=== PATIENT | male | born 1985 | race Hispanic/Latino ===

== ENCOUNTER 2018-12-21 11:46 | Emergency (ER) | payer SELFPAY ==
[~2018-12-21] VITALS: Ht 152.4 cm; Wt 50.0 kg
[2018-12-21 12:14] LABS: HEMOGLOBIN 15.1 g/dl (14.0-18.0); IMMATURE GRANULOCYTES 0.4 % (0.0-5.0); MEAN CORPUSCULAR HGB 30.4 pG CALC (26.0-32.0); MEAN CORPUSCULAR HGB CONC 32.7 g/L CALC (32.0-36.0); NEUT# 3.23 thou/uL (1.82-7.42); RED BLOOD COUNT 4.97 mill/uL (4.70-6.10)
[2018-12-21 12:21] LABS: HEMATOCRIT 46.2 % (39.0-50.0)
[2018-12-21 12:32] LABS: ALBUMIN 4.9 g/dL (3.2-5.0); ANION GAP 30 (6-22 (CALC)); BILIRUBIN, TOTAL 0.3 mg/dL (0.0-1.4); BUN 14 mg/dL (9-20); BUN/CREATININE RATIO 11 (12-20 (CALC)); CARBON DIOXIDE 13 mmol/l (22-30); CHLORIDE 105 mmol/l (95-108); CREATININE 1.3 mg/dL (0.7-1.3); GFR > 60 ML/MIN (>=60 (CALC)); GFR FOR AFR.AMER. > 60 ML/MIN (>=60 (CALC)); POTASSIUM 3.8 mmol/l (3.5-5.1); SGOT/AST 22 u/l (17-59); SODIUM 144 mmol/l (137-146)
[2018-12-21 12:53] LABS: ALKALINE PHOSPHATASE 57 u/l (38-126)
[2018-12-21 14:10] LABS: BARBITURATES NEGATIVE (NEGATIVE); COCAINE NEGATIVE (NEGATIVE); METHADONE NEGATIVE (NEGATIVE); OXCYCODONE NEGATIVE (NEGATIVE); TETRAHYDROCANNABIONOL POSITIVE (NEGATIVE); TRICYLIC ANTIDEPRESSANTS NEGATIVE (NEGATIVE)
[2018-12-21 14:13] VITALS: BP 126/56
== END 2018-12-21 14:19 | DRG 313 ==
LOC: ED 11:46
PROVIDERS: Emergency Medicine
DX: R07.89 Other chest pain (principal); R00.0 Tachycardia, unspecified; F19.90 Other psychoactive substance use, unspecified, uncomplicated